=== PATIENT | female | born 1960 | race Caucasian/White ===

== ENCOUNTER 2019-05-18 13:33 | Observation (INO) | payer MEDICARE, OTHER ==
--- NOTE | 2019-05-18 13:43 | ER Document Report ---
ED Medical Screen (RME) - General Stated Complaint: STROKE LIKE SYMPTOMS Time Seen by Provider: 05/18/19 13:39 Primary Care Provider: HONORIO WALLACE [Primary Care Provider] - Follow up as needed Mode of Arrival: Wheelchair Information source: Patient Notes: Patient presents to the emergency department with complaints of right-sided numbness and weakness. Reports symptoms started 1 hour ago. Patient has a history of stroke and is on Plavix and aspirin. She has left-sided paralysis. Reports some nausea denies vomiting. I have greeted and performed a rapid initial assessment of this patient. A comprehensive ED assessment and evaluation of the patient, analysis of test results and completion of the medical decision making process will be conducted by additional ED providers. Dictation of this chart was performed using voice recognition software; therefore, there may be some unintended grammatical errors. Doctor's Discharge - Discharge Referrals: HONORIO WALLACE [Primary Care Provider] - Follow up as needed
--- NOTE | 2019-05-18 14:00 | RADIOLOGY REPORT (SQ) ---
EXAM DESCRIPTION: CT HEAD WITHOUT COMPLETED DATE/TIME: 05/18/2019 1:50 pm REASON FOR STUDY: right side weakness, hx stroke COMPARISON: 03/13/2011 TECHNIQUE: Axial images acquired through the brain without intravenous contrast. Images reviewed wi th bone, brain and subdural windows. Additional sagittal and coronal reconstructions were generated. Images stored on PACS. All CT scanners at this facility use dose modulation, iterative reconstruction, and/or weight based d osing when appropriate to reduce radiation dose to as low as reasonably achievable (ALARA). [facility]: Dose Right [facility]: CareDose [facility]: Dose Right [facility]: Teradose 4D [facility]: Smart Attendify RADIATION DOSE: CT Rad equipment meets quality standard of care and radiation dose reduction techniq ues were employed. CTDIvol: 53.2 mGy. DLP: 991 mGy-cm. mGy. LIMITATIONS: None. FINDINGS: VENTRICLES: Normal size and contour. CEREBRUM: No masses. No hemorrhage. No midline shift. No evidence for acute infarction. Unchanged cystic encephalomalacia of the right MCA territory and basal ganglia. CEREBELLUM: No masses. No hemorrhage. No alteration of density. No evidence for acute infarction. EXTRAAXIAL SPACES: No fluid collections. No masses. ORBITS AND GLOBE: No intra- or extraconal masses. Normal contour of globe without masses. CALVARIUM: No fracture. PARANASAL SINUSES: No fluid or mucosal thickening. SOFT TISSUES: No mass or hematoma. OTHER: No other significant finding. IMPRESSION: Unchanged cystic encephalomalacia of the right MCA territory and basilar ganglia. No CT evidence evidence of acute stroke or hemorrhage. EVIDENCE OF ACUTE STROKE: NO. Findings reported to the emergency department by critical findings notification system at the time of interpretation. COMMENT: Quality ID # [id number]: Final reports with documentation of one or more dose reduction techniques (e.g., Automated exposure control, adjustment of the mA and/or kV according to patient size, use of iterative reconstruction technique) TECHNICAL DOCUMENTATION: JOB ID: [id number] [employer]- All Rights Reserved Reading location - IP/workstation name: [email or web address]
--- NOTE | 2019-05-18 14:00 | RADIOLOGY REPORT (SQ) ---
EXAM DESCRIPTION: CHEST SINGLE VIEW COMPLETED DATE/TIME: 05/18/2019 1:52 pm REASON FOR STUDY: right side weakness, hx stroke COMPARISON: 05/14/2010 EXAM PARAMETERS: NUMBER OF VIEWS: One view. TECHNIQUE: Single frontal radiographic view of the chest acquired. RADIATION DOSE: NA LIMITATIONS: None. FINDINGS: LUNGS AND PLEURA: Small right pleural effusion. Left lung is clear. MEDIASTINUM AND HILAR STRUCTURES: No masses. Contour normal. HEART AND VASCULAR STRUCTURES: Heart normal in size. Normal vasculature. BONES: No acute findings. HARDWARE: None in the chest. OTHER: No other significant finding. IMPRESSION: Small right pleural effusion. TECHNICAL DOCUMENTATION: JOB ID: [id number] [employer]- All Rights Reserved Reading location - IP/workstation name: [email or web address]
[2019-05-18 14:11] LABS: ABSOLUTE EOSINOPHILS # (AUTO) 0.5 10^3/uL (0.0-0.6); ABSOLUTE LYMPHOCYTES (AUTO) 1.7 10^3/uL (0.5-4.7); ABSOLUTE MONOCYTES (AUTO) 0.3 10^3/uL (0.1-1.4); ABSOLUTE NEUT (AUTO) 2.4 10^3/uL (1.7-8.2); BASOPHILS % (AUTO) 0.3 % (0-2); EOSINOPHILS % (AUTO) 10.4 % (0-6); HEMATOCRIT 43.1 % (36.0-47.0); HEMOGLOBIN 14.6 g/dL (12.0-15.5); LYMPHOCYTES % (AUTO) 34.9 % (13-45); MEAN CORPUSCULAR HEMOGLOBIN 29.9 pg (27.0-33.4); MEAN CORPUSCULAR HGB CONC 33.9 g/dL (32.0-36.0); MEAN CORPUSCULAR VOLUME 88 fl (80-97); MONOCYTES % (AUTO) 6.4 % (3-13); PLATELET COUNT 222 10^3/uL (150-450); RED BLOOD COUNT 4.88 10^6/uL (3.72-5.28); RED CELL DISTRIBUTION WIDTH 14.3 % (11.5-14.0); TOTAL CELLS COUNTED % (AUTO) 100 %
[2019-05-18 14:18] LABS: INTERNATIONAL RATION (INR) 0.98; PARTIAL THROMBOPLASTIN TIME 30.5 SEC (23.5-35.8)
[2019-05-18 14:41] LABS: ALANINE AMINOTRANSFERASE 27 U/L (9-52); ALKALINE PHOSPHATASE 79 U/L (38-126); ANION GAP 9 (5-19); ASPARTATE AMINO TRANSFERASE 18 U/L (14-36); BILIRUBIN,DIRECT 0.3 mg/dL (0.0-0.4); BILIRUBIN,TOTAL 0.6 mg/dL (0.2-1.3); BLOOD UREA NITROGEN 11 mg/dL (7-20); CALCIUM 9.4 mg/dL (8.4-10.2); CARBON DIOXIDE 23 mmol/L (22-30); CHLORIDE 111 mmol/L (98-107); CREATINE KINASE 104 U/L (30-135); GLUCOSE 103 mg/dL (75-110); POTASSIUM 4.1 mmol/L (3.6-5.0); SODIUM 143.1 mmol/L (137-145); TOTAL PROTEIN 6.6 g/dL (6.3-8.2)
[2019-05-18 14:55] LABS: CREATINE KINASE MB 0.63 ng/mL (<4.55)
[2019-05-18 14:58] LABS: TROPONIN I < 0.012 ng/mL
[2019-05-18] MEDS ORDERED: ACETAMINOPHEN 325 MG TABLET PO PRN (16:34)
--- NOTE | 2019-05-18 16:39 | ER Document Report ---
ED Neuro Symptoms/Deficit - General Chief Complaint: S/S of Possible Stroke Stated Complaint: STROKE LIKE SYMPTOMS Time Seen by Provider: 05/18/19 13:39 Primary Care Provider: HONORIO WALLACE [NO LOCAL MD] - Follow up as needed Mode of Arrival: Wheelchair Notes: Patient says that she was still in bed this morning when she had numbness of the entire right side of her body. She had a previous stroke involving the left side of her body and the symptoms are about the same. She is been told that she has carotid artery disease, but nothing can be done for it. She currently takes Plavix but no other anticoagulants. Denies significant headache. No loss of consciousness. Did have some trouble with her balance and walking. Of interest, patient was diagnosed with [place] spotted fever about 6 weeks ago. She had symptoms of a rash, chills, fever, and was diagnosed and given doxycycline for treatment. Has completed that treatment course. Patient denies any vomiting, but has had some nausea. No recent fevers. TRAVEL OUTSIDE OF THE [place] IN LAST 30 DAYS: No - Related Data Allergies/Adverse Reactions: No Known Allergies Allergy (Verified 05/18/19 13:49) Past Medical History - General Information source: Patient - Social History Smoking Status: Former Smoker Family History: Reviewed & Not Pertinent Patient has suicidal ideation: No Patient has homicidal ideation: No - Past Medical History Cardiac Medical History: Reports: Hx Hypercholesterolemia, Hx Hypertension Neurological Medical History: Reports: Hx Cerebrovascular Accident - 9 years ago Review of Systems - Review of Systems Notes: REVIEW OF SYSTEMS: CONSTITUTIONAL : Denies fever. EENT: Denies eye, ear, nose or mouth or throat pain or other symptoms. CARDIOVASCULAR: Denies chest pain. RESPIRATORY: Denies cough, chest congestion, or shortness of breath. GASTROINTESTINAL: Denies abdominal pain or nausea, vomiting, or diarrhea. GENITOURINARY: Denies difficulty or painful urinating, urinary frequency, blood in urine. MUSCULOSKELETAL: Denies back or neck pain. Denies joint pain or swelling. SKIN: Denies rash or skin lesions. NEUROLOGICAL: Denies LOC or altered mental status. Denies headache. See HPI. Says she has some difficulty with walking this morning. ALL OTHER SYSTEMS REVIEWED AND NEGATIVE. Physical Exam - Vital signs Vitals: Temp Pulse Resp BP Pulse Ox 98 F 70 18 139/82 H 96 05/18/19 13:40 05/18/19 13:40 05/18/19 13:40 05/18/19 13:40 05/18/19 13:40 Interpretation: Normal Notes: Vital signs are all normal. PHYSICAL EXAMINATION: GENERAL: Well-appearing, in no acute distress. HEAD: Atraumatic, normocephalic. EYES: Pupils equal round and reactive to light, extraocular movements intact. No facial asymmetry. ENT: oropharynx clear without exudates. Moist mucous membranes. NECK: Normal range of motion, supple. No bruits heard. LUNGS: Breath sounds clear and equal bilaterally. HEART: Regular rate and rhythm without murmurs. ABDOMEN: Soft, nontender. No guarding or rebound. No masses. BACK: No tenderness throughout entire back. EXTREMITIES: Normal range of motion without pain. Contracture left hand NEUROLOGICAL: Normal speech, stood patient at bedside and she is unsteady on her feet although she can bear her weight. Was able to take a couple of steps and then back to the stretcher and laid back down. T. Normal sensory, motor, and reflex exams. Awake, alert, and oriented x3. Cranial nerves normal. Vision has old contracture of her left hand secondary to her stroke 9 years ago. PSYCH: Normal mood, normal affect. SKIN: Warm, dry, no rashes. Course - Re-evaluation Re-evalutation: 05/18/19 16:39 Patient says that her numbness has now completely subsided. She is asymptomatic. Will ask for the hospitalist to admit her for overnight observ ation. Patient's symptoms were improving when she arrived to the emergency department and for that reason she was not given TPA/thrombolytics. She had continued improvement in her symptoms to the point where she is symptom-free at this time and I do not think she ever had indications for receiving thrombolytic treatment. - Vital Signs Vital signs: Temp Pulse Resp BP Pulse Ox 98 F 70 17 139/82 H 97 05/18/19 13:40 05/18/19 13:40 05/18/19 14:08 05/18/19 14:08 05/18/19 14:08 - Laboratory Result Diagrams: 05/18/19 14:05 05/18/19 14:05 Laboratory results interpreted by me: 05/18/19 05/18/19 14:05 14:05 RDW 14.3 H Eosinophils % 10.4 H Chloride 111 H - Diagnostic Test Radiology reviewed: Image reviewed, Reports reviewed - CT scan of the brain showed an old area of infarct, but nothing new and no new stroke present. Radiology results interpreted by nc: 05/18/19 16:45 Chest x-ray shows a small effusion in the right lung. - EKG Interpretation by Ks EKG shows normal: Sinus rhythm Rate: Normal Rhythm: NSR Additional EKG results interpreted by nc: 05/18/19 17:04 EKG shows low voltage. Discharge - Discharge Clinical Impression: TIA (transient ischemic attack) Condition: Stable Disposition: ADMITTED OBSERVATION Admitting Provider: Judith (Hospitalist) Unit Admitted: IMCU Referrals: LOCALMD,NO [NO LOCAL MD] - Follow up as needed
--- NOTE | 2019-05-18 17:06 | PDOC H&P ---
History of Present Illness Admission Date/PCP: ONI ESIPNOZA NP Patient complains of: Right-sided weakness History of Present Illness: MIREILLE ESPINOZA is a 59 year old female history of CVA involving the left side of the body 9 years ago, hypertension, obesity, hypercholesterolemia came to the emergency room with complaints of right-sided weakness this morning. She went to bed okay last night except for a loose stools after taking cephalexin yesterday watery stools usually she is constipated and woke up this morning with right-sided numbness and weakness decided to come to the emergency room for further evaluation. She is also come planing of right frontal headache from this morning associated with nausea. Denies any vomitings denies any abdominal pain denies any diarrhea this morning denies any fever denies any chills denies any falls. Denies any confusion. Denies any seizure activity. Past Medical History Cardiac Medical History: Reports: Hyperlipidema, Hypertension Past Surgical History Past Surgical History: Reports: None Social History Information Source: Patient Smoking Status: Former Smoker Frequency of Alcohol Use: Occasional Hx Recreational Drug Use: No Hx Prescription Drug Abuse: No - Advance Directive Resuscitation Status: Do Not Resuscitate Family History Family History: Reviewed & Not Pertinent Parental Family History Reviewed: Yes - Father with history of attention hypercholesterolemia and stroke. Children Family History Reviewed: Yes Sibling(s) Family History Reviewed.: Yes Medication/Allergy Allergies/Adverse Reactions: No Known Allergies Allergy (Verified 05/18/19 13:49) Review of Systems Constitutional: PRESENT: headache(s). ABSENT: fever(s) Eyes: ABSENT: visual disturbances Ears: ABSENT: hearing changes Nose, Mouth, and Throat: ABSENT: sore throat Respiratory: ABSENT: dyspnea, hemoptysis Integumentary: ABSENT: rash, wounds Neurological: PRESENT: numbness, weakness Psychiatric: ABSENT: anxiety, depression, homidical ideation, suicidal ideation Physical Exam Vital Signs: Temp Pulse Resp BP Pulse Ox 98 F 70 17 139/82 H 97 05/18/19 13:40 05/18/19 13:40 05/18/19 14:08 05/18/19 14:08 05/18/19 14:08 Intake & Output 05/17/19 05/18/19 05/19/19 06:59 06:59 06:59 Weight 96.5 kg General appearance: PRESENT: mild distress, well-developed Head exam: PRESENT: atraumatic Eye exam: PRESENT: PERRLA Ear exam: PRESENT: normal external ear exam Mouth exam: PRESENT: moist, tongue midline Teeth exam: PRESENT: poor dentation Respiratory exam: PRESENT: clear to auscultation adam. ABSENT: rales, rhonchi, wheezes Cardiovascular exam: PRESENT: RRR. ABSENT: diastolic murmur, rubs, systolic murmur GI/Abdominal exam: PRESENT: normal bowel sounds, soft. ABSENT: distended, guarding, mass, organolmegaly, rebound, tenderness Rectal exam: PRESENT: deferred Neurological exam: PRESENT: alert, awake, oriented to person, oriented to place, oriented to time, oriented to situation, other - Patient has a left-sided weakness from previous stroke. Psychiatric exam: PRESENT: appropriate affect, normal mood. ABSENT: homicidal ideation, suicidal ideation Results Laboratory Results: 05/18/19 14:05 05/18/19 14:05 05/18/19 05/18/19 14:05 14:05 WBC 5.0 RBC 4.88 Hgb 14.6 Hct 43.1 MCV 88 MCH 29.9 MCHC 33.9 RDW 14.3 H Plt Count 222 Seg Neutrophils % 48.0 Lymphocytes % 34.9 Monocytes % 6.4 Eosinophils % 10.4 H Basophils % 0.3 Absolute Neutrophils 2.4 Absolute Lymphocytes 1.7 Absolute Monocytes 0.3 Absolute Eosinophils 0.5 Absolute Basophils 0.0 Sodium 143.1 Potassium 4.1 Chloride 111 H Carbon Dioxide 23 Anion Gap 9 BUN 11 Creatinine 0.60 Est GFR ( Amer) > 60 Est GFR (Non-Af Amer) > 60 Glucose 103 Calcium 9.4 Total Bilirubin 0.6 AST 18 ALT 27 Alkaline Phosphatase 79 Total Protein 6.6 Albumin 4.0 05/18/19 05/18/19 14:05 14:05 Creatine Kinase 104 CK-MB (CK-2) 0.63 Troponin I < 0.012 Impressions: Chest X-Ray 05/18/19 13:40 IMPRESSION: Small right pleural effusion. Head CT 05/18/19 13:40 IMPRESSION: Unchanged cystic encephalomalacia of the right MCA territory and b asilar ganglia. No CT evidence evidence of acute stroke or hemorrhage. EVIDENCE OF ACUTE STROKE: NO. Findings reported to the emergency department by critical findings notification system at the time of interpretation. Assessment and Plan - Diagnosis (1) TIA (transient ischemic attack) Is this a current diagnosis for this admission?: Yes Plan: 05/18/2019-patient is going to be admitted to [facility] as observation to rule out stroke. Aspiration fall seizure precautions are implemented. To start on aspirin and Plavix and DVT prophylaxis initiated. GI prophylaxis was initiated. MRI of the brain without contrast and carotid Dopplers are requested. To start on Crestor 10 mg p.o. nightly and recheck the labs tomorrow including lipid panels. Stroke core measures implemented. (2) H/O: CVA (cerebrovascular accident) Is this a current diagnosis for this admission?: Yes Plan: 05/18/2019-patient has history of CVA involving the left side of the body left hemiparesis it happened 9 years ago. As per the patient she had minor stroke followed by a major stroke. pt is taking aspirin and Plavix at home. (3) HTN (hypertension) Is this a current diagnosis for this admission?: No Plan: 05/18/2019-patient is given the history of chronic essential hypertension. Blood pressure is 139/82 with heart rate of 71 stable. Once the home medications are available we are going to restart the medications. (4) Obesity (BMI 30.0-34.9) Is this a current diagnosis for this admission?: No Plan: 05/18/2019-patient's BMI is more than 33 diet exercise weight loss lifestyle modifications are discussed with the patient. Dietary consult is going to be requested. - Time Time Spent with patient: 25-34 minutes Medications reviewed and adjusted accordingly: Yes Anticipated discharge: Home
[2019-05-18] MEDS ORDERED: HYDRALAZINE HCL INJ/PF 20 MG/1 ML SDV IV PRN (17:08)
[2019-05-18 17:27] LABS: CHOLESTEROL 169.64 mg/dL (0-200); TRIGLYCERIDES 174 mg/dL (<150)
[2019-05-18 17:38] LABS: DIRECT LDL 80 mg/dL (<100); VLDL CHOLESTEROL 34.8 mg/dL (10-31)
[2019-05-18] MEDS ORDERED: ENOXAPARIN SODIUM INJ 40 MG/0.4 ML DISP.SYRIN SUBCUT ONE (18:00)
--- NOTE | 2019-05-18 18:19 | RADIOLOGY REPORT (SQ) ---
EXAM DESCRIPTION: MRI HEAD WITHOUT COMPLETED DATE/TIME: 05/18/2019 5:55 pm REASON FOR STUDY: cva COMPARISON: 02/06/2010 TECHNIQUE: Multiplanar imaging includes non-contrasted T1, T2, FLAIR, and diffusion with ADC map seq uences. Images stored on PACS. LIMITATIONS: None. FINDINGS: ANATOMY: Mildly enlarged right lateral ventricle. . Pituitary fossa normal. CSF SPACES: Normal in size and contour. No hemorrhage. CEREBRUM: Encephalomalacia in the right frontotemporal region from previous infarction. Otherwise ag e-appropriate White matter signal on FLAIR imaging. No evidence of hemorrhage or extraaxial fluid co llection. POSTERIOR FOSSA: No signal alteration. No hemorrhage. No edema, masses or mass effect. Internal stephan tory canals, cerebello-pontine angles, mastoids normal. DIFFUSION IMAGING: Negative for acute or sub-acute infarction. ORBITS: No masses. Globes normal. PARANASAL SINUSES: Diffuse mucosal thickening. . OTHER: Small right mastoid effusion. IMPRESSION: Negative for acute or sub-acute infarction.Encephalomalacia in the right frontotemporal region from previous infarction. EVIDENCE OF ACUTE STROKE: NO. TECHNICAL DOCUMENTATION: JOB ID: [id number] [place]-72 2010 [employer]- All Rights Reserved Reading location - IP/workstation name: [employer]
--- NOTE | 2019-05-18 21:05 | RADIOLOGY REPORT (SQ) ---
EXAM DESCRIPTION: US CAROTID DOPPLER BILATERAL COMPLETED DATE/TME: 05/18/2019 00:00 CLINICAL HISTORY: 59 years, Female, cva COMPARISON: None. TECHNIQUE: Axial 2-D grayscale images of the neck was performed in regards to assessment of the carotid arteries. Duplex/Doppler was utilized. LIMITATIONS: None. FINDINGS: Peak systolic (PS) and end diastolic (ED) velocities are as follows: RIGHT SIDE Proximal CCA: PS 51 cm/s. ED 7 cm/s. Distal CCA: PS 48 cm/s. ED 7 cm/s. Proximal ICA: PS N/A cm/s. ED N/A cm/s. Distal ICA: PS N/A cm/s. ED N/A cm/s. ECA: 88 cm/s. ICA/CCA PS ratio: N/A Right vertebral artery flow is antegrade, peak systolic velocity of 35 cm/s. LEFT SIDE Proximal CCA: PS 124 cm/s. ED 17 cm/s. Distal CCA: PS 139 cm/s. ED 25 cm/s. Proximal ICA: PS N/A cm/s. ED N/A cm/s. Distal ICA: PS N/A cm/s. ED N/A cm/s. (The proximal and distal segments of the left ICA were not visualized and are thus not evaluated). ECA: Not visualized. ICA/CCA PS ratio: N/A Left vertebral artery flow is antegrade, 52 cm/s. 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 Tortuous left internal and external carotid arteries which precludes definitive assessment on this examination. Specifically, the left internal and external carotid arteries were not well-visualized. copyright 2010 [employer]- All Rights Reserved
[2019-05-18] MEDS: ONDANSETRON HCL INJ/PF 4 MG/2 ML SDV IV PRN (21:53)
[2019-05-18] MEDS: FAMOTIDINE 20 MG TABLET PO SCH (21:54)
[2019-05-18] MEDS ORDERED: SIMVASTATIN 10 MG TABLET PO SCH (22:00)
[2019-05-19] MEDS: ONDANSETRON HCL INJ/PF 4 MG/2 ML SDV IV PRN ×2 (05:04→13:31)
[2019-05-19 05:06] LABS: ABSOLUTE EOSINOPHILS # (AUTO) 0.4 10^3/uL (0.0-0.6); ABSOLUTE MONOCYTES (AUTO) 0.4 10^3/uL (0.1-1.4); ABSOLUTE NEUT (AUTO) 1.7 10^3/uL (1.7-8.2); BASOPHILS % (AUTO) 0.6 % (0-2); EOSINOPHILS % (AUTO) 9.2 % (0-6); HEMATOCRIT 38.4 % (36.0-47.0); HEMOGLOBIN 13.1 g/dL (12.0-15.5); LYMPHOCYTES % (AUTO) 44.3 % (13-45); MEAN CORPUSCULAR HEMOGLOBIN 30.2 pg (27.0-33.4); MEAN CORPUSCULAR HGB CONC 34.2 g/dL (32.0-36.0); MEAN CORPUSCULAR VOLUME 89 fl (80-97); MONOCYTES % (AUTO) 7.7 % (3-13); PLATELET COUNT 185 10^3/uL (150-450); RED BLOOD COUNT 4.34 10^6/uL (3.72-5.28); RED CELL DISTRIBUTION WIDTH 14.5 % (11.5-14.0); SEGMENTED NEUTROPHILS % (AUTO) 38.2 % (42-78); TOTAL CELLS COUNTED % (AUTO) 100 %; WHITE BLOOD COUNT 4.6 10^3/uL (4.0-10.5)
[2019-05-19 05:28] LABS: ALANINE AMINOTRANSFERASE 20 U/L (9-52); ALBUMIN 3.4 g/dL (3.5-5.0); ALKALINE PHOSPHATASE 59 U/L (38-126); ANION GAP 9 (5-19); ASPARTATE AMINO TRANSFERASE 22 U/L (14-36); BILIRUBIN,DIRECT 0.3 mg/dL (0.0-0.4); BILIRUBIN,TOTAL 0.5 mg/dL (0.2-1.3); BLOOD UREA NITROGEN 13 mg/dL (7-20); CALCIUM 8.9 mg/dL (8.4-10.2); CARBON DIOXIDE 22 mmol/L (22-30); CHLORIDE 109 mmol/L (98-107); CHOLESTEROL 149.28 mg/dL (0-200); CREATINE KINASE 75 U/L (30-135); GLUCOSE 111 mg/dL (75-110); POTASSIUM 3.4 mmol/L (3.6-5.0); SODIUM 139.5 mmol/L (137-145); TOTAL PROTEIN 5.7 g/dL (6.3-8.2); TRIGLYCERIDES 251 mg/dL (<150)
[2019-05-19 05:37] LABS: CREATINE KINASE MB 0.43 ng/mL (<4.55)
[2019-05-19 05:39] LABS: DIRECT LDL 70 mg/dL (<100)
[2019-05-19 05:40] LABS: VLDL CHOLESTEROL 50.2 mg/dL (10-31)
[2019-05-19] MEDS ORDERED: CLOPIDOGREL BISULFATE 75 MG TABLET PO SCH (10:00)
[2019-05-19] MEDS ORDERED: ENOXAPARIN SODIUM INJ 40 MG/0.4 ML DISP.SYRIN SUBCUT SCH (10:00)
[2019-05-19] MEDS ORDERED: ASPIRIN 325 MG TABLET PO SCH (10:00)
[2019-05-19] MEDS: FAMOTIDINE 20 MG TABLET PO SCH (10:26)
[2019-05-19 14:10] VITALS: BP 113/75
--- NOTE | 2019-05-19 19:07 | EKG REPORT ---
SEVERITY:- BORDERLINE ECG - SINUS RHYTHM BORDERLINE LEFT AXIS DEVIATION CONSIDER ANTERIOR INFARCT BORDERLINE T ABNORMALITIES, LATERAL LEADS : Confirmed by: Fili Davis MD 19-May-2019 19:06:47
--- NOTE | 2019-05-24 15:57 | PDOC DISCHARGE SUMMARY ---
General - Admit/Disc Date/PCP Admission Date/Primary Care Provider: 05/18/19 17:18 ONI ESPINOZA, MARTHA Discharge Date: 05/19/19 - Additional Information Resuscitation Status: Full Code Home Medications: Amlodipine Besylate [Norvasc 10 mg Tablet] 10 mg PO DAILY 05/18/19 Aspirin [Ecotrin 81 mg EC Tablet] 81 mg PO DAILY 05/18/19 Atenolol [Tenormin] 25 mg PO DAILY 05/18/19 Clopidogrel Bisulfate [Plavix 75 mg Tablet] 75 mg PO DAILY 05/18/19 Duloxetine HCl [Cymbalta] 60 mg PO DAILY 05/18/19 Ergocalciferol (Vitamin D2) [Vitamin D2] 50 mcg PO WE@1000 05/18/19 Esomeprazole Mag Trihydrate [Nexium] 40 mg PO DAILY 05/18/19 Promethazine HCl [Phenergan 25 mg Tablet] 50 mg PO TIDP PRN 05/18/19 Rosuvastatin Calcium [Crestor 20 mg Tablet] 20 mg PO DAILY 05/18/19 Solifenacin Succinate [Vesicare] 10 mg PO DAILY 05/18/19 History of Present Illness History of Present Illness: MIREILLE ESPINOZA is a 59 year old female history of CVA involving the left side of the body 9 years ago, hypertension, obesity, hypercholesterolemia came to the emergency room with complaints of right-sided weakness this morning. She went to bed okay last night except for a loose stools after taking cephalexin yesterday watery stools usually she is constipated and woke up this morning with right-sided numbness and weakness decided to come to the emergency room for fu rther evaluation. She is also come planing of right frontal headache from this morning associated with nausea. Denies any vomitings denies any abdominal pain denies any diarrhea this morning denies any fever denies any chills denies any falls. Denies any confusion. Denies any seizure activity. Hospital Course Hospital Course: (1) TIA (transient ischemic attack) Back to baseline at the time of discharge. 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 Was admitted to telemetry, started on DAPT, DVT prophylaxis, statins, seizure, aspiration, and fall precautions. 05/18/2019. Head CT unchanged cystic encephalomalacia over the right MCA territory and basal ganglia. No CT evidence of acute stroke or hemorrhage. 05/18/2019. MRI head. Negative for acute or subacute infarction. Encephalomalacia in the right frontotemporal region from previous infarction. 05/18/2019. Carotid Doppler positive for complete occlusion of the right ICA proximally. PT/OT/ST consulted. And based on their evaluation no acute rehab noted. Patient p.o. tolerant at the time of discharge. Patient was discharged home. To restart home meds. And follow-up with PCP. Patient living with her and daughter. (2) H/O: CVA (cerebrovascular accident) History of right internal carotid occlusion, right MCA stroke with residual left-sided hemiparesis x9 years. No acute changes. She was discharged home to restart her DAPT, statins, and BP meds. 05/18/2019. Head CT unchanged cystic encephalomalacia over the right MCA territory and basal ganglia. No CT evidence of acute stroke or hemorrhage. 05/18/2019. MRI head. Negative for acute or subacute infarction. Encephalomalacia in the right frontotemporal region from previous infarction. 05/18/2019. Carotid Doppler positive for complete occlusion of the right ICA proximally. (3) HTN (hypertension) Restarted on home meds. Euvolemic normotensive at the time of discharge. Outpatient PCP follow-up. (4) Obesity (BMI 30.0-34.9) Lifestyle modification was recommended. Patient has limited exercise tolerance due to severe left-sided hemiparesis. Physical Exam Vital Signs: Temp Pulse Resp BP Pulse Ox 98.0 F 72 16 113/75 98 05/19/19 15:25 05/19/19 16:00 05/19/19 16:00 05/19/19 16:00 05/19/19 16:00 General appearance: PRESENT: no acute distress, well-developed, well-nourished Head exam: PRESENT: atraumatic, normocephalic Eye exam: PRESENT: conjunctiva pink, EOMI, PERRLA. ABSENT: scleral icterus Ear exam: PRESENT: normal external ear exam Mouth exam: PRESENT: moist, tongue midline Neck exam: ABSENT: carotid bruit, JVD, lymphadenopathy, thyromegaly Respiratory exam: PRESENT: clear to auscultation adam. ABSENT: rales, rhonchi, wheezes Cardiovascular exam: PRESENT: RRR. ABSENT: diastolic murmur, rubs, systolic murmur Pulses: PRESENT: normal dorsalis pedis pul Vascular exam: PRESENT: normal capillary refill GI/Abdominal exam: PRESENT: normal bowel sounds, soft. ABSENT: distended, guarding, mass, organolmegaly, rebound, tenderness Rectal exam: PRESENT: deferred Extremities exam: PRESENT: full ROM. ABSENT: calf tenderness, clubbing, pedal edema Neurological exam: PRESENT: alert, awake, oriented to person, oriented to place, oriented to time, oriented to situation, CN II-XII grossly intact, motor sensory deficit - Left-sided hemiparesis. Stable. Chronic. Psychiatric exam: PRESENT: appropriate affect, normal mood. ABSENT: homicidal ideation, suicidal ideation Skin exam: PRESENT: dry, intact, warm. ABSENT: cyanosis, rash Results Laboratory Results: 05/19/19 04:46 05/19/19 04:46 05/18/19 05/18/19 05/18/19 14:05 14:05 18:15 Creatine Kinase 104 93 CK-MB (CK-2) 0.63 Troponin I < 0.012 NT-Pro-B Natriuret Pep 05/18/19 05/18/19 05/18/19 18:15 23:54 23:54 Creatine Kinase 84 CK-MB (CK-2) 0.48 0.40 Troponin I NT-Pro-B Natriuret Pep 05/19/19 05/19/19 04:46 04:46 Creatine Kinase 75 CK-MB (CK-2) 0.43 Troponin I NT-Pro-B Natriuret Pep 36 Impressions: Carotid Doppler Study 05/18/19 00:00 IMPRESSION: Complete occlusion of the right ICA proximally. Tortuous left internal and external carotid arteries which precludes definitive assessment on this examination. Specifically, the left internal and external carotid arteries were not well-visualized. copyright 2010 [employer]- All Rights Reserved Head MRI 05/18/19 00:00 IMPRESSION: Negative for acute or sub-acute infarction.Encephalomalacia in the right frontotemporal region from previous infarction. EVIDENCE OF ACUTE STROKE: NO. Chest X-Ray 05/18/19 13:40 IMPRESSION: Small right pleural effusion. Head CT 05/18/19 13:40 IMPRESSION: Unchanged cystic encephalomalacia of the right MCA territory and basilar ganglia. No CT evidence evidence of acute stroke or hemorrhage. EVIDENCE OF ACUTE STROKE: NO. Findings reported to the emergency department by critical findings notification system at the time of interpretation. Qualifiers - * PATIENT BEING DISCHARGED WITH ANY OF THE FOLLOWING DIAGNOSIS: No VTE patient discharged on overlapping Therapy?: Yes Acute Heart Failure - Is this a Heart Failure Patient?: No
== END 2019-05-19 18:10 | disposition home or self-care (01) ==
LOC: ER 13:33 → EH 17:18 → 3W 05-19 00:15
PROVIDERS: ADMIT Internal Medicine; ATTEND Internal Medicine
DX: G45.9 Transient cerebral ischemic attack, unspecified (principal); I69.354 Hemiplegia and hemiparesis following cerebral infarction affecting left non-dominant side; I10 Essential (primary) hypertension; E66.9 Obesity, unspecified; R51 Headache; R11.0 Nausea; G93.89 Other specified disorders of brain; R26.2 Difficulty in walking, not elsewhere classified; I69.398 Other sequelae of cerebral infarction; M24.542 Contracture, left hand; Z79.82 Long term (current) use of aspirin; Z68.34 Body mass index [BMI] 34.0-34.9, adult; Z79.899 Other long term (current) drug therapy; Z66 Do not resuscitate; Z87.891 Personal history of nicotine dependence; Z86.19 Personal history of other infectious and parasitic diseases
CPT/HCPCS: 93005; 99285; 96374; 36415 ×2; 82553 ×2; 82962; 82550 ×2; 84443; 85025 ×2; 85610; 85730; 80053 ×2; 84484; 83036; 80061 ×2; 83880; 93880; 70551; 71045; 70450; 93010; 97530; 97161; 97535; 97165; G0378 ×2; J1650 ×2; J3490; J2405 ×2